=== PATIENT | male | born 1935 | race Caucasian/White ===

== ENCOUNTER 2017-01-03 17:25 | Inpatient (IN) | payer MEDICARE, MEDICAID ==
[~2017-01-03] VITALS: Ht 180.3 cm; Wt 64.0 kg
[2017-01-03] MEDS ORDERED: IOHEXOL 350 MG/ML 10 ML VIAL (for RAD DIAG) IVCONTRAST ONE (17:26)
[2017-01-03 17:27] VITALS: BP 125/54; PULSE 54; RESP 28; O2SAT 95
[2017-01-03] MEDS ORDERED: SODIUM CHLOR 0.9% 1000 ML INJ 1,000 ML IV SCH (18:44)
[2017-01-03] MEDS ORDERED: SODIUM CHLORIDE 0.9% FLUSH 10 ML FLUSH IV FLUSH PRN ×2 (18:45→22:30)
[2017-01-03] MEDS ORDERED: ONDANSETRON HCL 4 MG/2 ML VIAL IVP ONE (18:45)
[2017-01-03 18:48] VITALS: BP 137/78; PULSE 60; RESP 20; TEMP 96.3; O2SAT 97
--- NOTE | 2017-01-03 18:51 | PD ---
HPI Chief Complaint: GI Complaint Time Seen by Provider: 18:47 Travel History International Travel<30 days: No Contact w/Intl Traveler<30days: No Traveled to known affect area: No History of Present Illness HPI 81-year-old male presents to the emergency department complaining of abdominal pain, vomiting that started today. He states he ate some egg rolls this morning. He states that around 2 PM, he started with epigastric abdominal pain and vomiting. He states he vomited undigested food 3. Patient denies any diarrhea. She reports some mild constipation. No blood in his stool. He believes he ran a fever today due to chills. He states he does not have a thermometer S he lives on the streets. He reports history of "bad legs and bad eyes". He takes no prescribed medications. He denies any alcohol use. He does smoke cigars. No illegal drug use. He denies any chest pain or shortness of breath. COUNT INCLUDES THE [facility] Social History Alcohol Use: No Tobacco Use: Yes Substance Use: No Allergies-Medications (Allergen,Severity, Reaction): Coded Allergies: No Known Allergies (Unverified , 01/03/17) Reported Meds & Prescriptions Reported Meds & Active Scripts Active No Active Prescriptions or Reported Medications Review of Systems Except as stated in HPI: all other systems reviewed are Neg Physical Exam Narrative GENERAL: Well-nourished, well-developed elderly male patient, temp of 96.3 rectally. SKIN: Focused skin assessment warm/dry. HEAD: Normocephalic. Atraumatic EYES: No scleral icterus. No injection or drainage. NECK: Supple, trachea midline. No JVD or lymphadenopathy. CARDIOVASCULAR: Regular rate and rhythm without murmurs, gallops, or rubs. RESPIRATORY: Breath sounds equal bilaterally. No accessory muscle use. Lungs sounds diminished. GASTROINTESTINAL: Abdomen soft, and nondistended. Patient has tenderness to epigastric and right upper quadrant. MUSCULOSKELETAL: No cyanosis, or edema. BACK: Nontender without obvious deformity. No CVA tenderness. Data Data Last Documented VS Vital Signs Date Time Temp Pulse Resp B/P (MAP) Pulse Ox O2 Delivery O2 Flow Rate FiO2 01/03/17 19:21 97.8 70 20 131/62 (85) 98 Nasal Cannula 2.00 Orders Orders Morphine Inj (Morphine Inj) (01/03/17 19:00) Complete Blood Count With Diff (01/03/17 18:44) Comprehensive Metabolic Panel (01/03/17 18:44) Lipase (01/03/17 18:44) Lactic Acid (01/03/17 18:44) Prothrombin Time / Inr (Pt) (01/03/17 18:44) Act Partial Throm Time (Ptt) (01/03/17 18:44) Urinalysis - C+S If Indicated (01/03/17 18:44) Ct Abd/Pel W Iv Contrast(Rout) (01/03/17 18:44) Iv Access Insert/Monitor (01/03/17 18:44) Ecg Monitoring (01/03/17 18:44) Oximetry (01/03/17 18:44) Ondansetron Inj (Zofran Inj) (01/03/17 18:45) Sodium Chlor 0.9% 1000 Ml Inj (Ns 1000 M (01/03/17 18:44) Sodium Chloride 0.9% Flush (Ns Flush) (01/03/17 18:45) Electrocardiogram (01/03/17 18:44) Blood Culture (01/03/17 18:44) Iohexol 350 Inj (Omnipaque 350 Inj) (01/03/17 17:26) Piperacil-Tazo 4.5 Gm Premix (Zosyn 4.5 (01/03/17 21:30) Us Abdomen Gallbladder (01/03/17 ) Admit Order (Ed Use Only) (01/03/17 21:44) Labs Laboratory Tests Test 01/03/17 18:30 White Blood Count 9.1 TH/MM3 Red Blood Count 4.09 MIL/MM3 Hemoglobin 12.6 GM/DL Hematocrit 38.3 % Mean Corpuscular Volume 93.7 FL Mean Corpuscular Hemoglobin 30.8 PG Mean Corpuscular Hemoglobin Concent 32.9 % Red Cell Distribution Width 14.1 % Platelet Count 186 TH/MM3 Mean Platelet Volume 8.4 FL Neutrophils (%) (Auto) 89.3 % Lymphocytes (%) (Auto) 7.5 % Monocytes (%) (Auto) 2.9 % Eosinophils (%) (Auto) 0.1 % Basophils (%) (Auto) 0.2 % Neutrophils # (Auto) 8.1 TH/MM3 Lymphocytes # (Auto) 0.7 TH/MM3 Monocytes # (Auto) 0.3 TH/MM3 Eosinophils # (Auto) 0.0 TH/MM3 Basophils # (Auto) 0.0 TH/MM3 CBC Comment DIFF FINAL Differential Comment Prothrombin Time 10.7 SEC Prothromb Time International Ratio 1.0 RATIO Activated Partial Thromboplast Time 28.0 SEC Blood Urea Nitrogen 24 MG/DL Creatinine 1.04 MG/DL Random Glucose 166 MG/DL Total Protein 7.8 GM/DL Albumin 3.4 GM/DL Calcium Level 9.1 MG/DL Alkaline Phosphatase 91 U/L Aspartate Amino Transf (AST/SGOT) 226 U/L Alanine Aminotransferase (ALT/SGPT) 85 U/L Total Bilirubin 2.0 MG/DL Sodium Level 139 MEQ/L Potassium Level 5.5 MEQ/L Chloride Level 107 MEQ/L Carbon Dioxide Level 25.1 MEQ/L Anion Gap 7 MEQ/L Estimat Glomerular Filtration Rate 69 ML/MIN Lactic Acid Level 1.1 mmol/L Lipase 54658 U/L [facility] Medical Decision Making Medical Screen Exam Complete: Yes Emergency Medical Condition: Yes Medical Record Reviewed: Yes Interpretation(s) Last Impressions Abdomen/Pelvis CT 01/03/174 Signed Impressions: Service Date/Time: Sunday, January 03, 2017 20:45 - CONCLUSION: 1. Mild stranding of fat around the pancreas with some free fluid around the gallbladder and gallbladder wall thickening. Differential diagnosis includes mild pancreatitis and cholecystitis. Calcified gallstone in gallbladder. 2. No bowel obstruction. No free air. 3. Liver cirrhosis. Jerry Ball MD Differential Diagnosis Pancreatitis versus cholecystitis versus diverticulitis versus UTI versus gastroenteritis Narrative Course 81-year-old male presents to the emergency department for evaluation of abdominal pain, vomiting that started today. Patient has temperature of 96.3 rectally. EKG, CBC, CMP, lipase, PTT, PT/INR, blood cultures 2, lactic acid, UA are ordered and pending. CT abdomen/pelvis with IV contrast is ordered and pending. CBC shows no acute abnormality. CMP shows hyperkalemia 5.5, but hemolysis is noted, glucose 166, bilirubin 2.0, AST 226, ALT 85. Lipase is 26,225. Lactic acid is 1.1. Coags show no acute abnormality. CT abdomen/pelvis shows 1. Mild stranding of fat around the pancreas with some free fluid around the gallbladder and gallbladder wall thickening. Differential diagnosis includes mild pancreatitis and cholecystitis. Calcified gallstone in gallbladder. 2. No bowel obstruction. No free air. 3. Liver cirrhosis. Right upper quadrant ultrasound is ordered. Patient is given Zosyn 4.[address] Tyson accepted admission. Diagnosis Primary Impression: Acute pancreatitis Qualified Codes: K85.90 - Acute pancreatitis without necrosis or infection, unspecified Admitting Information Admitting Physician Requests: Admit Scripts No Active Prescriptions or Reported Meds Lisa Amato Jan 03, 2017 18:51
[2017-01-03] MEDS ORDERED: MORPHINE SULFATE 4 MG/ML INJ IV PUSH ONE (19:00)
[2017-01-03 19:21] VITALS: BP 131/62; PULSE 70; RESP 20; TEMP 97.8; O2SAT 98
[2017-01-03 19:47] LABS: AUTOMATED NEUTROPHIL # 8.1 TH/MM3 (1.8-7.7); BASOPHIL % 0.2 % (0.0-2.0); EOSINOPHIL % 0.1 % (0.0-4.0); HEMATOCRIT 38.3 % (39.0-51.0); HEMO FLAGS DIFF FINAL; LYMPH % 7.5 % (9.0-44.0); LYMPHOCYTE # 0.7 TH/MM3 (1.0-4.8); MEAN CELL VOLUME 93.7 FL (80.0-100.0); MEAN CORPUSCULAR HEMOGLOBIN 30.8 PG (27.0-34.0); MEAN CORPUSCULAR HGB CONC 32.9 % (32.0-36.0); MONO % 2.9 % (0.0-8.0); NEUT % 89.3 % (16.0-70.0); PLATELET COUNT 186 TH/MM3 (150-450); RED BLOOD COUNT 4.09 MIL/MM3 (4.50-5.90); RED CELL DISTRIBUTION WIDTH 14.1 % (11.6-17.2); WHITE BLOOD COUNT 9.1 TH/MM3 (4.0-11.0)
[2017-01-03 19:52] LABS: PROTHROMBIN TIME - PATIENT 10.7 SEC (9.8-11.6)
[2017-01-03 20:02] LABS: ALT (GPT) 85 U/L (12-78)
[2017-01-03 20:03] LABS: ANION GAP 7 MEQ/L (5-15); AST (GOT) 226 U/L (15-37); BICARBONATE 25.1 MEQ/L (21.0-32.0); BLOOD UREA NITROGEN 24 MG/DL (7-18); CHLORIDE 107 MEQ/L (98-107); GLOMERULAR FILTRATION RATE 69 ML/MIN (>89); SODIUM (NA) 139 MEQ/L (136-145)
[2017-01-03 20:04] LABS: ALKALINE PHOSPHATASE 91 U/L (45-117)
[2017-01-03 20:06] LABS: POTASSIUM 5.5 MEQ/L (3.5-5.1)
--- NOTE | 2017-01-03 21:12 | RADRPT ---
EXAM DATE/TIME: 01/03/2017 20:45 [facility] COMPARISON: No previous studies available for comparison. INDICATIONS : Patient complains of abdominal pain, nausea and vomiting. IV CONTRAST: 80 cc Omnipaque 350 (iohexol) IV ORAL CONTRAST: No oral contrast ingested. RADIATION DOSE: 6.64 CTDIvol (mGy) MEDICAL HISTORY : None SURGICAL HISTORY : None. ENCOUNTER: Initial ACUITY: 1 day PAIN SCALE: 5/10 LOCATION: Bilateral upper quadrant TECHNIQUE: Volumetric scanning of the abdomen and pelvis was performed. Using automated exposure control and ad justment of the mA and/or kV according to patient size, radiation dose was kept as low as reasonably achievable to obtain optimal diagnostic quality images. DICOM format image data is available electro nically for review and comparison. FINDINGS: Lung bases demonstrate mild focal consolidation right lower lobe with some mild distal airway disease . Liver has a lobulated appearance characteristic of liver cirrhosis. Gallstone is present. There is so me gallbladder with thickening and pericholecystic fluid. This does raise the possibility of cholecys titis. Spleen, adrenals unremarkable. There is some mild stranding of fat around the pancreas. Small bilater al renal cysts. No pelvic masses or adenopathy. No significant free fluid in the pelvis. No acute bony abnormalities. CONCLUSION: 1. Mild stranding of fat around the pancreas with some free fluid around the gallbladder and gallblad chris wall thickening. Differential diagnosis includes mild pancreatitis and cholecystitis. Calcified g allstone in gallbladder. 2. No bowel obstruction. No free air. 3. Liver cirrhosis. Jerry Ball MD on January 03, 2017 at 21:02 Board Certified Radiologist. This report was verified electronically.
[2017-01-03] MEDS ORDERED: PIPERACIL-TAZO 4.5 GM PREMIX 100 ML IV ONE (21:30)
[2017-01-03] MEDS ORDERED: NALOXONE HCL 0.4 MG/ML AMP IV PRN (22:30)
[2017-01-03] MEDS ORDERED: MORPHINE SULFATE 4 MG/ML INJ IV PUSH PRN (22:30)
--- NOTE | 2017-01-03 22:46 | RADRPT ---
EXAM DATE/TIME: 01/03/2017 21:50 [facility] COMPARISON: No previous studies available for comparison. INDICATIONS : Right upper quadrant pain. MEDICAL HISTORY : Vomiting. Nausea. Right upper quadrant pain. SURGICAL HISTORY : None. ENCOUNTER: Initial ACUITY: 1 day PAIN SCORE: 6/10 LOCATION: Right upper quadrant MEASUREMENTS: Liver has a slightly lobulated appearance characteristic of liver cirrhosis. There is gallbladder wal l thickening with multiple gallstones and positive sonographic Stokes's sign. Some shadowing the gall bladder wall could represent some adenomyomatosis. Pancreas not well-visualized. Trace fluid in Roberts's pouch. Right kidney unremarkable. No biliary ductal dilatation. The portal venous flow is in normal direction. FINDINGS: CONCLUSION: 1. Gallbladder wall thickening with multiple gallstones and positive sonographic Stokes sign. Primary differential diagnosis is cholecystitis. There may also be some adenomyomatosis in the gallbladder w all. Jerry aBll MD on January 03, 2017 at 22:41 Board Certified Radiologist. This report was verified electronically.
[2017-01-03 23:08] VITALS: BP 124/61; PULSE 68; RESP 17; TEMP 98; O2SAT 99
[2017-01-03] MEDS: SODIUM CHLOR 0.9% 1000 ML INJ 1,000 ML IV SCH (23:10)
[2017-01-03 23:44] VITALS: BP 120/60; PULSE 70; RESP 17; TEMP 97; O2SAT 95
[2017-01-04 00:16] LABS: BLOOD, URINE NEG (NEG); GLUCOSE,URINE NEG (NEG); KETONE, URINE 10 mg/dL (NEG); MUCUS URINE FEW /lpf (OCC); NITRITE,URINE NEG (NEG); PH, URINE 5.5 (5.0-8.5); SQUAMOUS EPITHELIAL CELL URINE <1 /hpf (0-5); URINE COLOR YELLOW (YELLW/STRAW)
[2017-01-04 00:17] LABS: COMMENT (UR) CULT NOT INDICATED; CULTURE IF INDICATED CULT NOT INDICATED
--- NOTE | 2017-01-04 01:20 | HHI.HP ---
[facility] Primary Care Physician Admission Diagnosis acute pancreatitis Diagnoses: Travel History International Travel<30 Days: No Contact w/Intl Traveler <30 Da: No Traveled to Known Affected Are: No History of Present Illness History from patient, ER physician notes, and review of medical records. Patient reported that he thought he was having bed and rolls when he started having severe abdominal pains, pointed to midepigastrium, last night. He reports that he was quite nauseous and vomited a few times about 3 times. He was able to go to his friend's place though and at his friend's place, he was again feeling sick and felt warm and feverish. He also fell asleep because of being too weak. His friend there for than encouraged him to come to hospital and called 911. He denies any black color vomits or red color vomit. Denies any blood in his urine. Apart from the above, patient denies any other constitutional symptoms. Denies any chest pain/palpitations/shortness of breath/focal weakness. Denies any hematemesis/hematochezia/melena/hematuria. 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- but mostly on left side Past Surgical History ankle surgery knee surgery no trouble with anesthesia Allergies: Coded Allergies: No Known Allergies (Unverified , 01/03/17) Family History grandparents raised him grandma had- dm, gallbladder trouble Social History still smoking, "more than you could ever imagine" mostly cigars no etoh used to use drugs, iv drugs, but quit in 1983 Physical Exam Vital Signs Vital Signs Date Time Temp Pulse Resp B/P (MAP) Pulse Ox O2 Delivery O2 Flow Rate FiO2 01/03/17 23:08 98.0 68 17 124/61 (82) 99 Nasal Cannula 2.00 01/03/17 19:21 97.8 70 20 131/62 (85) 98 Nasal Cannula 2.00 01/03/17 18:48 96.3 60 20 137/78 (97) 97 Room Air 01/03/17 18:48 97 Room Air 01/03/17 17:27 54 28 125/54 (77) 95 Room Air Physical Exam GENERAL: This is a well-nourished, well-developed patient, in no apparent distress. SKIN: No rashes, ecchymoses or lesions. Cool and dry. HEAD: Atraumatic. Normocephalic. No temporal or scalp tenderness. EYES: No scleral icterus. No injection or drainage. ENT: Nose without bleeding, purulent drainage or septal hematoma. Airway patent. NECK: Trachea midline. No JVD CARDIOVASCULAR: Regular rate and rhythm without murmurs, gallops, or rubs. RESPIRATORY: Clear to auscultation. Breath sounds equal bilaterally. No wheezes , rales, or rhonchi. GASTROINTESTINAL: Abdomen soft, tenderness at RUQ and midepigastric, nondistended. No guarding. MUSCULOSKELETAL: Extremities without clubbing, cyanosis, or edema. No joint tenderness, effusion, or edema noted. No calf tenderness. NEUROLOGICAL: Awake and alert. Motor and sensory grossly within normal limits. Normal speech. Laboratory Laboratory Tests Test 01/03/17 18:30 01/04/17 00:01 White Blood Count 9.1 Red Blood Count 4.09 Hemoglobin 12.6 Hematocrit 38.3 Mean Corpuscular Volume 93.7 Mean Corpuscular Hemoglobin 30.8 Mean Corpuscular Hemoglobin Concent 32.9 Red Cell Distribution Width 14.1 Platelet Count 186 Mean Platelet Volume 8.4 Neutrophils (%) (Auto) 89.3 Lymphocytes (%) (Auto) 7.5 Monocytes (%) (Auto) 2.9 Eosinophils (%) (Auto) 0.1 Basophils (%) (Auto) 0.2 Neutrophils # (Auto) 8.1 Lymphocytes # (Auto) 0.7 Monocytes # (Auto) 0.3 Eosinophils # (Auto) 0.0 Basophils # (Auto) 0.0 CBC Comment DIFF FINAL Differential Comment Prothrombin Time 10.7 Prothromb Time International Ratio 1.0 Activated Partial Thromboplast Time 28.0 Blood Urea Nitrogen 24 Creatinine 1.04 Random Glucose 166 Total Protein 7.8 Albumin 3.4 Calcium Level 9.1 Alkaline Phosphatase 91 Aspartate Amino Transf (AST/SGOT) 226 Alanine Aminotransferase (ALT/SGPT) 85 Total Bilirubin 2.0 Sodium Level 139 Potassium Level 5.5 Chloride Level 107 Carbon Dioxide Level 25.1 Anion Gap 7 Estimat Glomerular Filtration Rate 69 Lactic Acid Level 1.1 Lipase 02027 Urine Color YELLOW Urine Turbidity CLEAR Urine pH 5.5 Urine Specific [place] GREATER THAN 1.050 Urine Protein TRACE Urine Glucose (UA) NEG Urine Ketones 10 Urine Occult Blood NEG Urine Nitrite NEG Urine Bilirubin NEG Urine Urobilinogen LESS THAN 2.0 Urine Leukocyte Esterase NEG Urine RBC 2 Urine WBC 1 Urine Squamous Epithelial Cells <1 Urine Mucus FEW Microscopic Urinalysis Comment CULT NOT INDICATED Date/Time Source Procedure Growth Status 01/03/17 18:55 Blood Peripheral Aerobic Blood Culture Pending Received 01/03/17 18:55 Blood Peripheral Anaerobic Blood Culture Pending Received Result Diagram: 01/03/17 1830 01/03/17 1830 Imaging Last 48 hours Impressions Abdomen/Pelvis CT 01/03/17 1844 Signed Impressions: Service Date/Time: Tuesday, January 03, 2017 20:45 - CONCLUSION: 1. Mild stranding of fat around the pancreas with some free fluid around the gallbladder and gallbladder wall thickening. Differential diagnosis includes mild pancreatitis and cholecystitis. Calcified gallstone in gallbladder. 2. No bowel obstruction. No free air. 3. Liver cirrhosis. Jerry Ball MD Gall Bladder Ultrasound 01/03/17 0000 Signed Impressions: Service Date/Time: Tuesday, January 03, 2017 21:50 - CONCLUSION: 1. Gallbladder wall thickening with multiple gallstones and positive sonographic Stokes sign. Primary differential diagnosis is cholecystitis. There may also be some adenomyomatosis in the gallbladder wall. Jerry Ball MD Caprini VTE Risk Assessment Caprini VTE Risk Assessment: Mod/High Risk (score >= 2) Caprini Risk Assessment Model Point Value = 1 Point Value = 2 Point Value = 3 Point Value = 5 Age 41-60 Minor surgery BMI > 25 kg/m2 Swollen legs Varicose veins or History of unexplained or recurrent spontaneous Oral contraceptives or hormone replacement Sepsis (< 1 month) Serious lung disease, including pneumonia (< 1 month) Abnormal pulmonary function Acute myocardial infarction Congestive heart failure (< 1 month) History of inflammatory bowel disease Medical patient at bed rest Age 61-74 Arthroscopic surgery Major open surgery (> 45 min) Laparoscopic surgery (> 45 min) Malignancy Confined to bed (> 72 hours) Immobilizing plaster cast Central venous access Age >= 75 History of VTE Family history of VTE Factor V Leiden Prothrombin [id number] Lupus anticoagulant Anticardiolipin antibodies Elevated serum homocysteine Heparin-induced thrombocytopenia Other congenital or acquired thrombophilia Stroke (< 1 month) Elective arthroplasty Hip, pelvis, or leg fracture Acute spinal cord injury (< 1 month) Prophylaxis Regimen Total Risk Factor Score Risk Level Prophylaxis Regimen 0-1 Low Early ambulation 2 Moderate Order ONE of the following: *Sequential Compression Device (SCD) *Heparin 5000 units SQ BID 3-4 Higher Order ONE of the following medications: *Heparin 5000 units SQ TID *Enoxaparin/Lovenox 40 mg SQ daily (WT < 150 kg, CrCl > 30 mL/min) *Enoxaparin/Lovenox 30 mg SQ daily (WT < 150 kg, CrCl > 10-29 mL/min) *Enoxaparin/Lovenox 30 mg SQ BID (WT < 150 kg, CrCl > 30 mL/min) AND/OR *Sequential Compression Device (SCD) 5 or more Highest Order ONE of the following medications: *Heparin 5000 units SQ TID (Preferred with Epidurals) *Enoxaparin/Lovenox 40 mg SQ daily (WT < 150 kg, CrCl > 30 mL/min) *Enoxaparin/Lovenox 30 mg SQ daily (WT < 150 kg, CrCl > 10-29 mL/min) *Enoxaparin/Lovenox 30 mg SQ BID (WT < 150 kg, CrCl > 30 mL/min) AND *Sequential Compression Device (SCD) Assessment and Plan Assessment and Plan Impression: Choledocholithiasis Gallstone pancreatitis Acute cholecystitis Liver cirrhosis- found on imaging studies Plan: Nothing by mouth. GI consult. Possible ERCP in a.m. General surgery consult for possible cholecystectomy. Pain control. Start patient on Zosyn 4.5 grams IV every 6 hours. DVT prophylaxiswith SCD. GI prophylaxis on pantoprazole. Physician Certification 2 Midnight Certification Type: Admission for Inpatient Services Order for Inpatient Services The services are ordered in accordance with Medicare regulations or non- Medicare payer requirements, as applicable. In the case of services not specified as inpatient-only, they are appropriately provided as inpatient services in accordance with the 2-midnight benchmark. Estimated LOS (days): 2 days is the estimated time the patient will need to remain in the hospital, assuming treatment plan goals are met and no additional complications. Post-Hospital Plan: Home Enrique Tyson MD Jan 04, 2017 01:20
[2017-01-04] MEDS: PIPERACIL-TAZO 4.5 GM PREMIX 100 ML IV SCH ×4 (03:00→21:00)
[2017-01-04 04:10] VITALS: BP 127/70; PULSE 68; RESP 17; TEMP 97.5; O2SAT 96
[2017-01-04 07:09] LABS: AUTOMATED NEUTROPHIL # 5.6 TH/MM3 (1.8-7.7); BASOPHIL % 0.2 % (0.0-2.0); EOSINOPHIL % 0.2 % (0.0-4.0); HEMATOCRIT 34.8 % (39.0-51.0); HEMO FLAGS DIFF FINAL; LYMPH % 21.4 % (9.0-44.0); LYMPHOCYTE # 1.6 TH/MM3 (1.0-4.8); MEAN CORPUSCULAR HEMOGLOBIN 31.3 PG (27.0-34.0); MEAN CORPUSCULAR HGB CONC 33.6 % (32.0-36.0); MONO % 5.1 % (0.0-8.0); NEUT % 73.1 % (16.0-70.0); PLATELET COUNT 150 TH/MM3 (150-450); RED BLOOD COUNT 3.75 MIL/MM3 (4.50-5.90); WHITE BLOOD COUNT 7.7 TH/MM3 (4.0-11.0)
[2017-01-04 07:15] LABS: ALKALINE PHOSPHATASE 77 U/L (45-117); ALT (GPT) 64 U/L (12-78); ANION GAP 5 MEQ/L (5-15); AST (GOT) 96 U/L (15-37); BICARBONATE 27.9 MEQ/L (21.0-32.0); BLOOD UREA NITROGEN 20 MG/DL (7-18); CHLORIDE 109 MEQ/L (98-107); GLOMERULAR FILTRATION RATE 79 ML/MIN (>89); POTASSIUM 3.7 MEQ/L (3.5-5.1); SODIUM (NA) 142 MEQ/L (136-145)
[2017-01-04 07:49] VITALS: PULSE 69
[2017-01-04 08:00] VITALS: BP 111/79; PULSE 71; RESP 18; TEMP 99.1; O2SAT 93
[2017-01-04] MEDS: SODIUM CHLOR 0.9% 1000 ML INJ 1,000 ML IV SCH ×4 (08:28→18:28)
--- NOTE | 2017-01-04 08:28 | EKG ---
Date Performed: 01/03/2017 Time Performed: 19:44:00 PTAGE: 81 years EKG: Sinus rhythm WITH FIRST DEGREE AV BLOCK SEPTAL MYOCARDIAL INFARCTION ABNORMAL ECG NO PREVIOUS TRACING DOCTOR: Yonas Martin Interpretating Date/Time 01/04/2017 08:26:05
--- NOTE | 2017-01-04 10:06 | PD.CONS ---
HPI History of Present Illness This is a 81 year old male who came to the emergency room for evaluation of abdominal pain with associated nausea and vomiting. Yesterday morning he had 2 egg rolls and reports that a few hours later he had sudden onset of moderate to severe epigastric pain which she describes as an intermittent dull ache that radiated to his back. He also reports that he had 2 episodes of nausea and vomiting consisting of bilious material. He had chills with a mild subjective fever. He also had mild bloating but denies any diarrhea or constipation. His symptoms were aggravated by any oral intake. He denies any prior episodes. He came to the ER and was found to have elevated lipase and lft's consistent with gallstone pancreatitis. He denies any prior history of pancreatitis or known gallbladder disease. He does not drink any alcohol. He denies any new medications. He reports that since his arrival to the ER he is feeling much better and his pain has resolved. He is no longer having nausea and vomiting and reports that he is hungry and would like some soup. (Bren Hansen) [facility] Past Medical History Denies any known medical problems, but does not regularly see a healthcare provider Chronic tobacco use Past Surgical History Ankle surgery Knee surgery (Bren Hansen) Coded Allergies: No Known Allergies (Unverified , 01/03/17) Medications Allergies Coded Allergies Type Severity Reaction Last Updated Verified No Known Allergies 01/03/17 No Active Scripts Medications Dose Route/Sig Max Daily Dose Days Date Category No Active Prescriptions or Reported Medications Rx Family History Does not know his family histories. States that his grandparents raised him Social History Tobacco use, unable to quantify, kept stating "more than you could ever imagine " No ETOH use No illicit drug use. (Bren Hansen) Review of Systems Constitutional: COMPLAINS OF: Fever, Chills, DENIES: Weight loss Respiratory: COMPLAINS OF: Cough, Wheezing Cardiovascular: DENIES: Chest pain Gastrointestinal: COMPLAINS OF: Abdominal pain, Nausea, Vomiting, Swelling of Abdomen (mild bloating), DENIES: Black stools, Bloody stools, Constipation, Diarrhea, Heartburn Musculoskeletal: COMPLAINS OF: Joint pain, Muscle aches Integumentary: DENIES: Abnormal pigmentation, Jaundice Hematologic/lymphatic: DENIES: Bruising Neurologic: DENIES: Headache Psychiatric: DENIES: Confusion (Bren Hansen) GI Exam Vitals I&O Vital Signs Date Time Temp Pulse Resp B/P (MAP) Pulse Ox O2 Delivery O2 Flow Rate FiO2 01/04/17 04:10 97.5 68 17 127/70 (89) 96 01/03/17 23:44 97.0 70 17 120/60 (80) 95 01/03/17 23:08 98.0 68 17 124/61 (82) 99 Nasal Cannula 2.00 01/03/17 19:21 97.8 70 20 131/62 (85) 98 Nasal Cannula 2.00 01/03/17 18:48 96.3 60 20 137/78 (97) 97 Room Air 01/03/17 18:48 97 Room Air 01/03/17 17:27 54 28 125/54 (77) 95 Room Air I/O 01/03/17 01/03/17 01/03/17 01/04/17 01/04/17 01/04/17 06:59 14:59 22:59 06:59 14:59 22:59 Intake Total 1000 ml 645 ml Balance 1000 ml 645 ml Intake Oral 120 ml IV Total 1000 ml 525 ml # Voids 1 # Bowel Movements 0 Imaging Last Impressions Abdomen/Pelvis CT 01/03/17 1844 Signed Impressions: Service Date/Time: Tuesday, January 03, 2017 20:45 - CONCLUSION: 1. Mild stranding of fat around the pancreas with some free fluid around the gallbladder and gallbladder wall thickening. Differential diagnosis includes mild pancreatitis and cholecystitis. Calcified gallstone in gallbladder. 2. No bowel obstruction. No free air. 3. Liver cirrhosis. Jerry Ball MD Gall Bladder Ultrasound 01/03/17 0000 Signed Impressions: Service Date/Time: Tuesday, January 03, 2017 21:50 - CONCLUSION: 1. Gallbladder wall thickening with multiple gallstones and positive sonographic Stokes sign. Primary differential diagnosis is cholecystitis. There may also be some adenomyomatosis in the gallbladder wall. Jerry Ball MD Laboratory Test 01/03/17 18:30 01/04/17 00:01 01/04/17 05:57 White Blood Count 9.1 TH/MM3 7.7 TH/MM3 Red Blood Count 4.09 MIL/MM3 3.75 MIL/MM3 Hemoglobin 12.6 GM/DL 11.7 GM/DL Hematocrit 38.3 % 34.8 % Mean Corpuscular Volume 93.7 FL 93.0 FL Mean Corpuscular Hemoglobin 30.8 PG 31.3 PG Mean Corpuscular Hemoglobin Concent 32.9 % 33.6 % Red Cell Distribution Width 14.1 % 14.0 % Platelet Count 186 TH/MM3 150 TH/MM3 Mean Platelet Volume 8.4 FL 8.0 FL Neutrophils (%) (Auto) 89.3 % 73.1 % Lymphocytes (%) (Auto) 7.5 % 21.4 % Monocytes (%) (Auto) 2.9 % 5.1 % Eosinophils (%) (Auto) 0.1 % 0.2 % Basophils (%) (Auto) 0.2 % 0.2 % Neutrophils # (Auto) 8.1 TH/MM3 5.6 TH/MM3 Lymphocytes # (Auto) 0.7 TH/MM3 1.6 TH/MM3 Monocytes # (Auto) 0.3 TH/MM3 0.4 TH/MM3 Eosinophils # (Auto) 0.0 TH/MM3 0.0 TH/MM3 Basophils # (Auto) 0.0 TH/MM3 0.0 TH/MM3 CBC Comment DIFF FINAL DIFF FINAL Differential Comment Prothrombin Time 10.7 SEC Prothromb Time International Ratio 1.0 RATIO Activated Partial Thromboplast Time 28.0 SEC Blood Urea Nitrogen 24 MG/DL 20 MG/DL Creatinine 1.04 MG/DL 0.92 MG/DL Random Glucose 166 MG/DL 72 MG/DL Total Protein 7.8 GM/DL 6.3 GM/DL Albumin 3.4 GM/DL 2.7 GM/DL Calcium Level 9.1 MG/DL 8.2 MG/DL Alkaline Phosphatase 91 U/L 77 U/L Aspartate Amino Transf (AST/SGOT) 226 U/L 96 U/L Alanine Aminotransferase (ALT/SGPT) 85 U/L 64 U/L Total Bilirubin 2.0 MG/DL 1.0 MG/DL Sodium Level 139 MEQ/L 142 MEQ/L Potassium Level 5.5 MEQ/L 3.7 MEQ/L Chloride Level 107 MEQ/L 109 MEQ/L Carbon Dioxide Level 25.1 MEQ/L 27.9 MEQ/L Anion Gap 7 MEQ/L 5 MEQ/L Estimat Glomerular Filtration Rate 69 ML/MIN 79 ML/MIN Lactic Acid Level 1.1 mmol/L Lipase 16567 U/L 5577 U/L Urine Color YELLOW Urine Turbidity CLEAR Urine pH 5.5 Urine Specific [place] GREATER THAN 1.050 Urine Protein TRACE mg/dL Urine Glucose (UA) NEG mg/dL Urine Ketones 10 mg/dL Urine Occult Blood NEG Urine Nitrite NEG Urine Bilirubin NEG Urine Urobilinogen LESS THAN 2.0 MG/DL Urine Leukocyte Esterase NEG Urine RBC 2 /hpf Urine WBC 1 /hpf Urine Squamous Epithelial Cells <1 /hpf Urine Mucus FEW /lpf Microscopic Urinalysis Comment CULT NOT INDICATED Date/Time Source Procedure Growth Status 01/03/17 18:55 Blood Peripheral Aerobic Blood Culture Pending Received 01/03/17 18:55 Blood Peripheral Anaerobic Blood Culture Pending Received Physical Examination HEENT: Normocephalic; atraumatic; no jaundice. CHEST: Resp. even/unlabored, expiratory wheezing, diminished breath sounds CARDIAC: RRR ABDOMEN: Soft, nondistended, very mild epigastric tenderness; no hepatosplenomegaly; bowel sounds are present in all four quadrants. EXTREMITIES: No clubbing, cyanosis, or edema. SKIN: Normal; no rash; no jaundice. [employer]: No focal deficits; alert and oriented times three. (Bren Hansen [facility]) Assessment and Plan Plan ASSESSMENT: - Gallstone pancreatitis. CT scan abdomen and pelvis with iv contrast (01/03/17)- ----> mild stranding of fat around the pancreas with some free fluid around the gallbladder and gallbladder wall thickening. Differential diagnosis included mild pancreatitis and cholecystitis. Calcified gallstone in gallbladder. No bowel obstruction. No free air. Liver cirrhosis. US (01/03/17)----> gallbladder wall thickening with multiple gallstones and positive sonographic Stokes sign. Primary differential diagnosis is cholecystitis. There also may be some adenomyomatosis and the gallbladder wall. Liver has a slightly lobulated appearance characteristic of liver cirrhosis. Lipase 26, 225---> 5577. LFTs were initially elevated in an obstructive pattern, but are trending down. Clinically the patient is much improved. Suspect that he passed a gallstone, but will obtain MRCP to r/o choledocholithiasis. Zosyn. IVF. - Cholecystitis, cholelithiasis. We will consult general surgery for evaluation for laparoscopic cholecystectomy once pancreatitis resolves. Zosyn - Liver cirrhosis on imaging (US/CT). No prior diagnosis of this. MELD 6. Denies ETOH use. 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 ? underlying chronic hepatitis. Will check liver workup. - Wheezing with significant tobacco history, suspect underlying COPD, per attending. - Hyperkalemia, improved. PLAN: - Clear liquid - MRCP - Add continuous IVF- NS 125cc/hr - Continue Zosyn - General surgery even for laparoscopic cholecystectomy once pancreatitis resolves - Hepatitis panel - MEKA, AMA, ASMA - AFP level - Ferritin, Iron saturation - Ceruloplasmin, ALpha 1 Antitrypsin - LFT, Lipase in am - Supportive care - Further recommendations to follow based on results of above - Pt seen and examined by Dr. Alberts and myself and this note is written on his behalf (Bren Hansen) Physician Comments Seen and examined, plan as above, surgical consult for cholecystectomy. (Brian Alberts MD) Bren Hansen Jan 04, 2017 10:06 Brian Alberts MD Jan 05, 2017 06:08
--- NOTE | 2017-01-04 10:36 | PD.CONS ---
cc: Michel Webb MD [facility] Service General Surgery Consult Requested By Dr. Tyson Reason for Consult Gallstone pancreatitis Primary Care Physician No Primary Care Physician History of Present Illness This is a 81-year-old male with a past medical history of arthritis. He started developing abdominal pain one day ago around 2 PM. He has multiple episodes of vomiting. He reports epigastric pain after eating egg rolls. A CT abdomen and pelvis was obtained which showed pancreatitis and free fluid around the gallbladder with gallbladder wall thickening. A lipase was obtained which was 26,000. A repeat lipase was obtained which was 5500. The patient is resolution of his abdominal pain. He likely passed a gallstone. An MRCP was obtained which only show cholelithiasis. The patient has been able to tolerate clear liquids. A General Surgery consultation has been requested for evaluation for laparoscopic cholecystectomy. Review of Systems Constitutional: COMPLAINS OF: Change in appetite, DENIES: Fatigue, Weight gain , Weight loss, Chills Endocrine: DENIES: Polydipsia, Polyuria, Polyphagia Eyes: DENIES: Diplopia Ears, nose, mouth, throat: DENIES: Hearing loss Respiratory: DENIES: Cough Cardiovascular: DENIES: Chest pain Gastrointestinal: COMPLAINS OF: Abdominal pain, Nausea, Vomiting Genitourinary: DENIES: Dysuria Musculoskeletal: DENIES: Joint pain Integumentary: DENIES: Abnormal pigmentation Hematologic/lymphatic: DENIES: Bruising Immunologic/allergic: DENIES: Eczema Neurologic: DENIES: Headache, Localized weakness, Paresthesias Psychiatric: DENIES: Confusion, Mood changes, Depression Past Family Social History Past Medical History Arthritis Past Surgical History Right ankle surgery Left knee surgery Reported Medications None Allergies: Coded Allergies: No Known Allergies (Unverified , 01/03/17) Active Ordered Medications Current Medications Medications (Trade) Dose Ordered Sig/Paulina Route Start Time Stop Time Status Last Admin (NS Flush) 2 ml UNSCH PRN IV FLUSH 01/03/17 18:45 Future Hold Sodium Chloride 1,000 ml @ 100 mls/hr Q10H IV 01/03/17 22:28 01/03/17 23:10 (NS Flush) 2 ml UNSCH PRN IV FLUSH 01/03/17 22:30 (NS Flush) 2 ml BID IV FLUSH 01/04/17 09:00 (Narcan Inj) 0.4 mg UNSCH PRN IV 01/03/17 22:30 Piperacillin Sod/ Tazobactam Sod 100 ml @ 200 mls/hr Q6H IV 01/04/17 03:00 01/04/17 03:00 (Morphine Inj) 2 mg Q3H PRN IV PUSH 01/03/17 22:30 Sodium Chloride 1,000 ml @ 125 mls/hr Q8H IV 01/04/17 10:15 Family History Noncontributory Social History Positive tobacco use-2 packs per day Denies EtOH use Denies current illicit drug use although he does admit to prior IVDA in the Physical Exam Vital Signs Vital Signs Date Time Temp Pulse Resp B/P (MAP) Pulse Ox O2 Delivery O2 Flow Rate FiO2 01/04/17 04:10 97.5 68 17 127/70 (89) 96 01/03/17 23:44 97.0 70 17 120/60 (80) 95 01/03/17 23:08 98.0 68 17 124/61 (82) 99 Nasal Cannula 2.00 01/03/17 19:21 97.8 70 20 131/62 (85) 98 Nasal Cannula 2.00 01/03/17 18:48 96.3 60 20 137/78 (97) 97 Room Air 01/03/17 18:48 97 Room Air 01/03/17 17:27 54 28 125/54 (77) 95 Room Air Physical Exam GENERAL: Pleasant 81-year-old male resting in bed in no acute distress. SKIN: Warm and dry. HEAD: Atraumatic. Normocephalic. EYES: Pupils equal and round. No scleral icterus. No injection or drainage. ENT: No nasal bleeding or discharge. Mucous membranes pink and moist. NECK: Trachea midline. CARDIOVASCULAR: Regular rate and rhythm. RESPIRATORY: No accessory muscle use. Clear to auscultation. Breath sounds equal bilaterally. GASTROINTESTINAL: Abdomen soft, nondistended. Minimal right upper quadrant tenderness with palpation. MUSCULOSKELETAL: Extremities without clubbing, cyanosis, or edema. No obvious deformities. NEUROLOGICAL: Awake and alert. No obvious cranial nerve deficits. Motor grossly within normal limits. Five out of 5 muscle strength in the arms and legs. Normal speech. PSYCHIATRIC: Appropriate mood and affect; insight and judgment normal. Laboratory Laboratory Tests Test 01/03/17 18:30 01/04/17 00:01 01/04/17 05:57 White Blood Count 9.1 7.7 Red Blood Count 4.09 3.75 Hemoglobin 12.6 11.7 Hematocrit 38.3 34.8 Mean Corpuscular Volume 93.7 93.0 Mean Corpuscular Hemoglobin 30.8 31.3 Mean Corpuscular Hemoglobin Concent 32.9 33.6 Red Cell Distribution Width 14.1 14.0 Platelet Count 186 150 Mean Platelet Volume 8.4 8.0 Neutrophils (%) (Auto) 89.3 73.1 Lymphocytes (%) (Auto) 7.5 21.4 Monocytes (%) (Auto) 2.9 5.1 Eosinophils (%) (Auto) 0.1 0.2 Basophils (%) (Auto) 0.2 0.2 Neutrophils # (Auto) 8.1 5.6 Lymphocytes # (Auto) 0.7 1.6 Monocytes # (Auto) 0.3 0.4 Eosinophils # (Auto) 0.0 0.0 Basophils # (Auto) 0.0 0.0 CBC Comment DIFF FINAL DIFF FINAL Differential Comment Prothrombin Time 10.7 Prothromb Time International Ratio 1.0 Activated Partial Thromboplast Time 28.0 Blood Urea Nitrogen 24 20 Creatinine 1.04 0.92 Random Glucose 166 72 Total Protein 7.8 6.3 Albumin 3.4 2.7 Calcium Level 9.1 8.2 Alkaline Phosphatase 91 77 Aspartate Amino Transf (AST/SGOT) 226 96 Alanine Aminotransferase (ALT/SGPT) 85 64 Total Bilirubin 2.0 1.0 Sodium Level 139 142 Potassium Level 5.5 3.7 Chloride Level 107 109 Carbon Dioxide Level 25.1 27.9 Anion Gap 7 5 Estimat Glomerular Filtration Rate 69 79 Lactic Acid Level 1.1 Lipase 64713 5577 Urine Color YELLOW Urine Turbidity CLEAR Urine pH 5.5 Urine Specific [place] GREATER THAN 1.050 Urine Protein TRACE Urine Glucose (UA) NEG Urine Ketones 10 Urine Occult Blood NEG Urine Nitrite NEG Urine Bilirubin NEG Urine Urobilinogen LESS THAN 2.0 Urine Leukocyte Esterase NEG Urine RBC 2 Urine WBC 1 Urine Squamous Epithelial Cells <1 Urine Mucus FEW Microscopic Urinalysis Comment CULT NOT INDICATED Date/Time Source Procedure Growth Status 8/23/17 18:55 Blood Peripheral Aerobic Blood Culture Pending Received 01/03/17 18:55 Blood Peripheral Anaerobic Blood Culture Pending Received Result Diagram: 01/04/17 0557 01/04/17 0557 Imaging Last 48 hours Impressions Cholangiopancreatography MRI 01/04/17 0000 Signed Impressions: Service Date/Time: December 12:31 - CONCLUSION: Cholelithiasis. K. Rashard Mcgarry MD Abdomen/Pelvis CT 01/03/17 1844 Signed Impressions: Service Date/Time: Tuesday, January 03, 2017 20:45 - CONCLUSION: 1. Mild stranding of fat around the pancreas with some free fluid around the gallbladder and gallbladder wall thickening. Differential diagnosis includes mild pancreatitis and cholecystitis. Calcified gallstone in gallbladder. 2. No bowel obstruction. No free air. 3. Liver cirrhosis. Jerry Ball MD Gall Bladder Ultrasound 01/03/17 0000 Signed Impressions: Service Date/Time: Tuesday, January 03, 2017 21:50 - CONCLUSION: 1. Gallbladder wall thickening with multiple gallstones and positive sonographic Stokes sign. Primary differential diagnosis is cholecystitis. There may also be some adenomyomatosis in the gallbladder wall. Jerry Ball MD Assessment and Plan Assessment and Plan 81-year-old male with gallstone pancreatitis -Clear liquids; NPO after MN -Labs in AM -Hold anticoagulation -IVF -MRCP reviewed -Will do laparoscopic cholecystectomy tomorrow pending labs -Thank you for this consult; We will continue to follow Discussed Condition With Elsa Mcintosh Jan 04, 2017 10:36
[2017-01-04] MEDS: SODIUM CHLORIDE 0.9% FLUSH 10 ML FLUSH IV FLUSH SCH ×2 (10:54→23:21)
[2017-01-04 12:00] VITALS: BP 95/65; PULSE 76; RESP 18; TEMP 96.6; O2SAT 93
--- NOTE | 2017-01-04 13:38 | RADRPT ---
EXAM DATE/TIME: 01/04/2017 12:31 [place] COMPARISON: CT ABDOMEN & PELVIS W CONTRAST, January 03, 2017, 20:45. US ABDOMEN - GALLBLADDER, January 03, 2017, 2 1:50. INDICATIONS : Abdominal pain. Obstruction. MEDICAL HISTORY : None. SURGICAL HISTORY : Cataracts. Leg fracture. ENCOUNTER: Subsequent ACUITY: 2 day PAIN SCORE: 0/10 LOCATION: abdomen. TECHNIQUE: Multiplanar, multisequence magnetic resonance imaging of the abdomen was performed. High-resolution 3D dataset was utilized to reconstruct maximum-intensity projection (MIP) images. FINDINGS: Common bile duct measures 4 mm and there is no evidence for intrahepatic ductal dilatation or fi lling defects. Multiple gallstones are present with slight thickening of the gallbladder wall. A mild case of adenomyomatosis may be present. CONCLUSION: Cholelithiasis. Toney Mcgarry MD on January 04, 2017 at 13:33 Board Certified Radiologist. This report was verified electronically.
[2017-01-04 16:00] VITALS: BP 122/58; PULSE 75; RESP 18; TEMP 98; O2SAT 94
[2017-01-04 18:21] LABS: TRANSFERRIN IRON PROFILE 158 MG/DL (200-360)
[2017-01-04 18:24] LABS: FERRITIN 286 NG/ML (26-388)
[2017-01-04 20:15] VITALS: BP 118/64; PULSE 83; RESP 18; TEMP 99.6; O2SAT 93
[2017-01-05] VITALS (7 sets, daily range): BP systolic 95–112; BP diastolic 41–59; PULSE 63–83; RESP 17–20; TEMP 96–98.6; O2SAT 91–97
[2017-01-05] MEDS: SODIUM CHLOR 0.9% 1000 ML INJ 1,000 ML IV SCH ×5 (02:15→17:55)
[2017-01-05] MEDS: PIPERACIL-TAZO 4.5 GM PREMIX 100 ML IV SCH ×4 (04:00→22:00)
[2017-01-05] MEDS ORDERED: BUPIVACAINE/EPINEPHRINE 0.25% 50 ML VIAL ONE (06:12)
[2017-01-05 07:41] LABS: INDIRECT BILIRUBIN 1.1 MG/DL (0.0-0.8); TOTAL BILIRUBIN ADULT 1.5 MG/DL (0.2-1.0)
[2017-01-05] MEDS ORDERED: FAMOTIDINE 20 MG/2 ML VIAL ONE (08:54)
[2017-01-05] MEDS: SODIUM CHLORIDE 0.9% FLUSH 10 ML FLUSH IV FLUSH SCH ×2 (09:00→21:00)
--- NOTE | 2017-01-05 10:30 | HHI.PR ---
Subjective Remarks seen 3:30 pm- post op patient hungry, no nausea or vomiting + flatus already "farted" Objective Vitals Vital Signs Date Time Temp Pulse Resp B/P (MAP) Pulse Ox O2 Delivery O2 Flow Rate FiO2 01/05/17 08:00 97.7 75 20 110/54 (72) 91 01/05/17 04:15 96.7 81 18 109/59 (76) 93 01/05/17 00:15 98.6 83 18 111/55 (73) 93 01/04/17 20:15 99.6 83 18 118/64 (82) 93 01/04/17 16:00 98.0 75 18 122/58 (79) 94 01/04/17 12:00 96.6 76 18 95/65 (75) 93 I/O 01/04/17 01/04/17 01/04/17 01/05/17 01/05/17 01/05/17 07:00 15:00 23:00 07:00 15:00 23:00 Intake Total 645 ml 480 ml 0 ml Output Total 200 ml Balance 645 ml 480 ml -200 ml Intake Oral 120 ml 480 ml 0 ml IV Total 525 ml Output Urine Total 200 ml # Voids 1 0 2 # Bowel Movements 0 0 0 Result Diagram: 01/04/17 0557 01/04/17 0557 Imaging Last Impressions Cholangiopancreatography MRI 01/04/17 0000 Signed Impressions: Service Date/Time: December 12:31 - CONCLUSION: Cholelithiasis. K. Rashard Mcgarry MD Abdomen/Pelvis CT 01/03/17 1844 Signed Impressions: Service Date/Time: Tuesday, January 03, 2017 20:45 - CONCLUSION: 1. Mild stranding of fat around the pancreas with some free fluid around the gallbladder and gallbladder wall thickening. Differential diagnosis includes mild pancreatitis and cholecystitis. Calcified gallstone in gallbladder. 2. No bowel obstruction. No free air. 3. Liver cirrhosis. Jerry Ball MD Gall Bladder Ultrasound 01/03/17 0000 Signed Impressions: Service Date/Time: Tuesday, January 03, 2017 21:50 - CONCLUSION: 1. Gallbladder wall thickening with multiple gallstones and positive sonographic Stokes sign. Primary differential diagnosis is cholecystitis. There may also be some adenomyomatosis in the gallbladder wall. Jerry Ball MD Objective Remarks awake and alert, anicteric lungs clear regular rhythm abdomen- soft good bowel sounds, sterile strips extremities no edema A/P Assessment and Plan Impression: S/P laparoscopic cholecystectomy for Gallstone Pancreatitis - surgery ff - started diet home tomorrow if cleared and tolerates po well Hadley Gruber MD Jan 05, 2017 10:30
[2017-01-05] MEDS ORDERED: DO NOT ADM ANY ANTICOAGULANT DRUGS PRN (11:00)
--- NOTE | 2017-01-05 11:04 | HHI.PR ---
Immediate Post Op Note Procedure Date: Jan 05, 2017 Pre Op Diagnosis: acute pancreatitis, acute cholecystitis Post Op Diagnosis: same, cirrhosis Surgeon: Maged Mercado Sewing Machinist(s): ayo Procedure: lap jannette Findings: acute cholecytitis, pancreatitis, cirrhosis Specimen(s) removed: gallbladder Estimated blood loss: 100cc Anesthesia: General Drains: None IVF Patient to: PACU Patient Condition: Good Maged Mercado MD Jan 05, 2017 11:04
[2017-01-05] MEDS ORDERED: fentaNYL CITRATE 250 MCG/5 ML AMP ONE (11:14)
[2017-01-05] MEDS ORDERED: PROPOFOL 200 MG/20 ML AMP IV ONE (12:47)
[2017-01-05] MEDS ORDERED: ONDANSETRON HCL 4 MG/2 ML VIAL IV PUSH ONE (12:47)
[2017-01-05] MEDS ORDERED: LACTATED RINGER'S 1000 ML INJ 1,000 ML IV ONE (12:47)
[2017-01-05 17:32] LABS: ANA SCREEN NEG (NEG)
[2017-01-06 00:20] VITALS: BP 130/60; PULSE 67; RESP 17; TEMP 97; O2SAT 98
[2017-01-06] MEDS: SODIUM CHLOR 0.9% 1000 ML INJ 1,000 ML IV SCH ×4 (00:28→10:41)
[2017-01-06] MEDS: PIPERACIL-TAZO 4.5 GM PREMIX 100 ML IV SCH ×2 (03:15→10:40)
[2017-01-06 04:20] VITALS: BP 118/57; PULSE 67; RESP 17; TEMP 97.6; O2SAT 97
[2017-01-06 08:00] VITALS: BP 107/62; PULSE 67; RESP 20; TEMP 96.7; O2SAT 96
[2017-01-06] MEDS: SODIUM CHLORIDE 0.9% FLUSH 10 ML FLUSH IV FLUSH SCH (09:00)
--- NOTE | 2017-01-06 09:54 | HHI.PR ---
Subjective Remarks no complains tolerating current diet "farting a lot" Objective Vitals Vital Signs Date Time Temp Pulse Resp B/P (MAP) Pulse Ox O2 Delivery O2 Flow Rate FiO2 01/06/17 08:00 96.7 67 20 107/62 (77) 96 01/06/17 04:20 97.6 67 17 118/57 (77) 97 01/06/17 01:35 Nasal Cannula 2.00 01/06/17 00:20 97.0 67 17 130/60 (83) 98 01/05/17 20:20 96.3 63 17 112/58 (76) 97 01/05/17 20:08 63 01/05/17 16:00 97.6 69 20 101/54 (70) 96 01/05/17 12:10 96.0 70 20 95/41 (59) 92 01/05/17 11:45 60 16 112/61 (78) 92 Nasal Cannula 2 01/05/17 11:30 61 16 108/54 (72) 91 Nasal Cannula 2 01/05/17 11:15 68 16 124/59 (80) 94 Nasal Cannula 2 01/05/17 11:08 98.2 75 16 129/60 (83) 92 Nasal Cannula 2 I/O 01/05/17 01/05/17 01/05/17 01/06/17 01/06/17 01/06/17 07:00 15:00 23:00 07:00 15:00 23:00 Intake Total 0 ml 1780 ml 300 ml 120 ml Output Total 200 ml 200 ml 350 ml Balance -200 ml 1780 ml 100 ml -230 ml Intake Oral 0 ml 480 ml 300 ml 120 ml Other 1300 ml Output Urine Total 200 ml 200 ml 350 ml # Voids 2 3 # Bowel Movements 0 0 0 0 Result Diagram: 01/04/17 0557 01/04/17 0557 Imaging Last Impressions Cholangiopancreatography MRI 01/04/17 0000 Signed Impressions: Service Date/Time: December 12:31 - CONCLUSION: Cholelithiasis. KOtilia Mcgarry MD Abdomen/Pelvis CT 01/03/17 1844 Signed Impressions: Service Date/Time: Tuesday, January 03, 2017 20:45 - CONCLUSION: 1. Mild stranding of fat around the pancreas with some free fluid around the gallbladder and gallbladder wall thickening. Differential diagnosis includes mild pancreatitis and cholecystitis. Calcified gallstone in gallbladder. 2. No bowel obstruction. No free air. 3. Liver cirrhosis. Jerry Ball MD Gall Bladder Ultrasound 01/03/17 0000 Signed Impressions: Service Date/Time: Tuesday, January 03, 2017 21:50 - CONCLUSION: 1. Gallbladder wall thickening with multiple gallstones and positive sonographic Stokes sign. Primary differential diagnosis is cholecystitis. There may also be some adenomyomatosis in the gallbladder wall. Jerry Ball MD Objective Remarks awake and alert, anicteric lungs clear regular rhythm abdomen- soft good bowel sounds, sterile strips in place, incisions dry, extremities no edema Procedures 01/05- s/p laparoscopic cholecystectomy A/P Assessment and Plan Impression: S/P laparoscopic cholecystectomy for Gallstone Pancreatitis - surgery ff advance to regular up and ambulate DC today if cleared with GS- OP ff up in 1 week- staff nurse to give office # to call diet as tolerated activity ad gab CM- for DC planning needs- Hadley Gruber MD Jan 06, 2017 09:54
--- NOTE | 2017-01-06 11:06 | HHI.PR ---
Subjective Subjective Notes feels fine, tolerating po, pain controlled. Objective Vitals/I&O Vital Signs Date Time Temp Pulse Resp B/P (MAP) Pulse Ox O2 Delivery O2 Flow Rate FiO2 01/06/17 08:00 96.7 67 20 107/62 (77) 96 01/06/17 01:35 Nasal Cannula 2.00 Labs Date/Time Source Procedure Growth Status 01/03/17 18:55 Blood Peripheral Aerobic Blood Culture - Preliminary NO GROWTH IN 2 DAYS Resulted 01/03/17 18:55 Blood Peripheral Anaerobic Blood Culture - Preliminary NO GROWTH IN 2 DAYS Resulted Radiology Last 48 hours Impressions Cholangiopancreatography MRI 01/04/17 0000 Signed Impressions: Service Date/Time: December 12:31 - CONCLUSION: Cholelithiasis. Toney Mcgarry MD Abdomen/Pelvis CT 01/03/17 1844 Signed Impressions: Service Date/Time: Tuesday, January 03, 2017 20:45 - CONCLUSION: 1. Mild stranding of fat around the pancreas with some free fluid around the gallbladder and gallbladder wall thickening. Differential diagnosis includes mild pancreatitis and cholecystitis. Calcified gallstone in gallbladder. 2. No bowel obstruction. No free air. 3. Liver cirrhosis. Jerry Ball MD Gall Bladder Ultrasound 01/03/17 0000 Signed Impressions: Service Date/Time: Tuesday, January 03, 2017 21:50 - CONCLUSION: 1. Gallbladder wall thickening with multiple gallstones and positive sonographic Stokes sign. Primary differential diagnosis is cholecystitis. There may also be some adenomyomatosis in the gallbladder wall. Jerry Ball MD Abdomen: Non-distended, Non-tender, BS normal Wound Wound : Wound Location: Abdomen Appearance: Clean & Dry Dressing: Dry A/P Assessment and Plan s/p lap jannette ok to dc home fu in 1 week in office. will see prn - please call if any question or concerns thanks Maged Mercado MD Jan 06, 2017 11:06
--- NOTE | 2017-01-06 11:30 | HHI.GIFU ---
Subjective Remarks Resting in bed. No n/v. Tolerating diet. Passing flatus. Mild abdominal tenderness. (Bren Hansen) Objective Vitals I&O Vital Signs Date Time Temp Pulse Resp B/P (MAP) Pulse Ox O2 Delivery O2 Flow Rate FiO2 01/06/17 08:00 96.7 67 20 107/62 (77) 96 01/06/17 04:20 97.6 67 17 118/57 (77) 97 01/06/17 01:35 Nasal Cannula 2.00 01/06/17 00:20 97.0 67 17 130/60 (83) 98 01/05/17 20:20 96.3 63 17 112/58 (76) 97 01/05/17 20:08 63 01/05/17 16:00 97.6 69 20 101/54 (70) 96 01/05/17 12:10 96.0 70 20 95/41 (59) 92 01/05/17 11:45 60 16 112/61 (78) 92 Nasal Cannula 2 01/05/17 11:30 61 16 108/54 (72) 91 Nasal Cannula 2 I/O 01/05/17 01/05/17 01/05/17 01/06/17 01/06/17 01/06/17 07:00 15:00 23:00 07:00 15:00 23:00 Intake Total 0 ml 1780 ml 300 ml 120 ml Output Total 200 ml 200 ml 350 ml Balance -200 ml 1780 ml 100 ml -230 ml Intake Oral 0 ml 480 ml 300 ml 120 ml Other 1300 ml Output Urine Total 200 ml 200 ml 350 ml # Voids 2 3 # Bowel Movements 0 0 0 0 Laboratory Date/Time Source Procedure Growth Status 01/03/17 18:55 Blood Peripheral Aerobic Blood Culture - Preliminary NO GROWTH IN 3 DAYS Resulted 01/03/17 18:55 Blood Peripheral Anaerobic Blood Culture - Preliminary NO GROWTH IN 3 DAYS Resulted Imaging Last Impressions Cholangiopancreatography MRI 01/04/17 0000 Signed Impressions: Service Date/Time: December 12:31 - CONCLUSION: Cholelithiasis. Toney Mcgarry MD Abdomen/Pelvis CT 01/03/17 1844 Signed Impressions: Service Date/Time: Tuesday, January 03, 2017 20:45 - CONCLUSION: 1. Mild stranding of fat around the pancreas with some free fluid around the gallbladder and gallbladder wall thickening. Differential diagnosis includes mild pancreatitis and cholecystitis. Calcified gallstone in gallbladder. 2. No bowel obstruction. No free air. 3. Liver cirrhosis. Jerry Ball MD Gall Bladder Ultrasound 01/03/17 0000 Signed Impressions: Service Date/Time: Tuesday, January 03, 2017 21:50 - CONCLUSION: 1. Gallbladder wall thickening with multiple gallstones and positive sonographic Stokes sign. Primary differential diagnosis is cholecystitis. There may also be some adenomyomatosis in the gallbladder wall. Jerry Ball MD Physical Exam HEENT: Normocephalic; atraumatic; no jaundice. CHEST: Expiratory wheezing, diminished bases CARDIAC: RRR ABDOMEN: Soft, nondistended, mild diffuse tenderness; bowel sounds are present in all four quadrants. EXTREMITIES: No clubbing, cyanosis, or edema. SKIN: Normal; no rash; no jaundice. GLUE SPECIALTY SUPERVISOR: No focal deficits; alert and oriented times three. (Bren Hansen [facility]) Assessment and Plan Plan ASSESSMENT: - Gallstone pancreatitis. CT scan abdomen and pelvis with iv contrast (01/03/17)- ----> mild stranding of fat around the pancreas with some free fluid around the gallbladder and gallbladder wall thickening. Differential diagnosis included mild pancreatitis and cholecystitis. Calcified gallstone in gallbladder. No bowel obstruction. No free air. Liver cirrhosis. US (01/03/17)----> gallbladder wall thickening with multiple gallstones and positive sonographic Stokes sign. Primary differential diagnosis is cholecystitis. There also may be some adenomyomatosis and the gallbladder wall. Liver has a slightly lobulated appearance characteristic of liver cirrhosis. MRCP ()----> Cholelithiasis. CBD 4 mm and there is no evidence for intrahepatic ductal dilatation or filling defects. Multiple gallstones with slight thickening of the gallbladder wall. A mild case of adenomyomatosis may be present. LFTs were initially elevated in an obstructive pattern, but are trending down. Clinically the patient is much improved. Suspect that he passed a gallstone, but will obtain. S/P Lap. Sharri (01/05/17 ). T. Bili 1.5, AST 37, ALT 40, Alk Phosph 66. - Cholecystitis, cholelithiasis. S/P Lap Sharri, POD #1. - Liver cirrhosis on imaging (US/CT). No prior diagnosis of this. MELD 6. Denies ETOH use. 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 ? underlying chronic hepatitis. Hepatitis profile (+) for HCV antibodies, will get genotype and viral load. MEKA, AMA, ASMA, Alpha 1 Antitrypsin, Ceruloplasmin pending. AFP 1.5, Ferritin 286. - Wheezing with significant tobacco history, suspect underlying COPD, per attending. PLAN: - COLBY - HCV Genotype and viral load - Await liver workup (pt with evidence of cirrhosis on imaging, new per patient) - If patient discharged, he will need outpatient follow up for liver disease - Further recommendations to follow based on results of above - Pt seen and examined by Dr. Alberts and myself and this note is written on his behalf (Bren Hansen) Physician Comments S/ P Cholecystectomy and recent work showed evidence of cirrhosis , work up pending, likely HCV related. PCR and genotype pending, can be followed as out patient. Will follow up with you as needed. (Brian Alberts MD) Bren Hansen Jan 06, 2017 11:29 Brian Alberts MD Jan 06, 2017 14:40
[2017-01-06 12:00] VITALS: BP 120/58; PULSE 71; RESP 16; TEMP 95.6; O2SAT 95
--- NOTE | 2017-01-08 09:25 | MP ---
cc: ADAMA ALCANTARA M.D. DATE OF SURGERY 01/05/2017 PREOPERATIVE DIAGNOSES 1. Acute cholecystitis 2. Gallstone pancreatitis. POSTOPERATIVE DIAGNOSES 1. Acute cholecystitis 2. Gallstone pancreatitis. 3. Cirrhosis, see photos. PROCEDURE PERFORMED Laparoscopic cholecystectomy. SURGEON Adama Alcantara MD ANESTHESIA General endotracheal. COMPLICATIONS None. INDICATION FOR PROCEDURE Mr. Lewis is very pleasant 81-year-old gentleman who presented to the hospital with nausea, vomiting, abdominal pain. He was worked up and found have pancreatitis as well as cholecystitis by imaging and lab work. He was managed conservatively until his pancreatitis resolved. Once his pancreatitis resolved, he was deemed a candidate for cholecystectomy. The risks and benefits of open and laparoscopic cholecystectomy was discussed with him and he was agreeable. DETAILS The patient was identified, brought to the operating room and placed supine on the operating room table. After adequate general endotracheal anesthesia was achieved, the abdomen was prepped and draped in standard surgical fashion. The infraumbilical space was anesthetized with 0.25% Marcaine. Infraumbilical incision was made. Dissection was carried down through the subcutaneous tissue into the midline fascia. The midline fascia was then incised sharply. A finger was placed in the peritoneal cavity without difficulty. Blunt balloon trocar was inserted and the abdomen was insufflated to 15 mmHg using CO2 gas. Next, two 5-mm trocars were placed in the right upper quadrant after anesthetizing the skin and subcutaneous tissue with 0.25% Marcaine. Attention was directed to the gallbladder which was noted to be very edematous with some fat saponification around it from the pancreatitis. The gallbladder was retracted cephalad. There were very dense omental adhesions which were taken down with blunt and electrocautery dissection. Once the gallbladder was clearly seen, attention was directed to the gallbladder neck. At the gallbladder neck the cystic duct was carefully dissected out and confirmed in two planes. Once it was seen in two planes entering the neck of the gallbladder, it was clipped three times proximally and once distally and then divided. Next, the cystic artery was confirmed in two planes. Once it was confirmed in two planes it was clipped twice proximally, once distally and then divided. Once we divided it out, there was some lymphatic tissue that was bleeding just superior and lateral to where we clipped the cystic artery. A single clip was placed on this and the bleeding stopped. Next, the gallbladder was dissected out of the hepatic fossa using electrocautery Bovie. Several bleeding points and the liver bed were controlled with electrocautery Bovie. The gallbladder was then placed in Endopouch bag and brought up to the infraumbilical port and inspected. The gallbladder was noted to be markedly thickened and scarred with multiple gallstones. Clips were placed in on the cystic duct stump with no evidence of leakage of bile. Next, the gallbladder was sent to pathology. The abdominal cavity was revisualized. The liver bed was carefully inspected and found to be hemostatic. The clips were carefully inspected and there was no evidence of leakage of bile and no evidence of bleeding. The abdominal cavity was rinsed out with warm saline solution until the effluent was noted to be clear. Once it was clear we elected to go ahead and place Yakov hemostatic agent due to the fact that the patient did have marked cirrhosis and the liver bed was raw in a couple of areas but not bleeding. 1 gram of Yakov was placed along the hepatic fossa. Next, all ports were removed under direct vision. The midline fascia was repaired using a 0 Vicryl in [id number] fashion. The skin was closed with 4-0 Vicryl. The patient tolerated the procedure well, was awakened and brought to Recovery in stable condition. MD JONO Bergeron/ESHA /10:59 AM /9:10 AM
[2017-01-09 13:54] LABS: MITOCHONDRIAL ABS LESS THAN 20.0 U (<=20.0)
--- NOTE | 2017-01-30 15:27 | HHI.DS ---
Discharge Summary Admission Date Jan 03, 2017 at 21:46 Discharge Date: Jan 06, 2017 Admitting Diagnosis acute pancreatitis (1) Gallstone pancreatitis ICD Code: K85.10 - Biliary acute pancreatitis without necrosis or infection Diagnosis: Principal (2) S/P laparoscopic cholecystectomy ICD Code: Z90.49 - Acquired absence of other specified parts of digestive tract Diagnosis: Principal Procedures 01/05- s/p laparoscopic cholecystectomy Brief History - From Admission History from patient, ER physician notes, and review of medical records. Patient reported that he thought he was having bed and rolls when he started having severe abdominal pains, pointed to midepigastrium, last night. He reports that he was quite nauseous and vomited a few times about 3 times. He was able to go to his friend's place though and at his friend's place, he was again feeling sick and felt warm and feverish. He also fell asleep because of being too weak. His friend there for than encouraged him to come to hospital and called 911. He denies any black color vomits or red color vomit. Denies any blood in his urine. Apart from the above, patient denies any other constitutional symptoms. Denies any chest pain/palpitations/shortness of breath/focal weakness. Denies any hematemesis/hematochezia/melena/hematuria. Imaging Last Impressions Cholangiopancreatography MRI 01/04/17 0000 Signed Impressions: Service Date/Time: December 12:31 - CONCLUSION: Cholelithiasis. K. Rashard Mcgarry MD Abdomen/Pelvis CT 01/03/17 1844 Signed Impressions: Service Date/Time: Tuesday, January 03, 2017 20:45 - CONCLUSION: 1. Mild stranding of fat around the pancreas with some free fluid around the gallbladder and gallbladder wall thickening. Differential diagnosis includes mild pancreatitis and cholecystitis. Calcified gallstone in gallbladder. 2. No bowel obstruction. No free air. 3. Liver cirrhosis. Jerry Ball MD Gall Bladder Ultrasound 01/03/17 0000 Signed Impressions: Service Date/Time: Tuesday, January 03, 2017 21:50 - CONCLUSION: 1. Gallbladder wall thickening with multiple gallstones and positive sonographic Stokes sign. Primary differential diagnosis is cholecystitis. There may also be some adenomyomatosis in the gallbladder wall. Jerry Ball MD PE at Discharge awake and alert, anicteric lungs clear regular rhythm abdomen- soft good bowel sounds, sterile strips in place, incisions dry, extremities no edema Pt update on day of discharge no complains tolerating current diet "farting a lot" Hospital Course 81 years old male S/P laparoscopic cholecystectomy for Gallstone Pancreatitis - surgery ff advance to regular up and ambulate DC today if cleared with GS- OP ff up in 1 week- staff nurse to give office # to call diet as tolerated activity ad gab Pt Condition on Discharge: Stable Discharge Disposition: Discharge Home Discharge Time: <= 30 minutes Discharge Instructions DIET: Follow Instructions for: As Tolerated, No Restrictions Speech Therapy-Diet Recommends: Regular Activities you can perform: Weight Bearing as Pedro Follow up Referrals: Gastroenterology - 2 Weeks @ [facility] - 3-5 Days with Maged Mercado MD please ian notes of dr mercado- give office number to call for appt- in 5 days post op ff up Medication Profile: No Active Prescriptions or Reported Meds Hadley Gruber MD Jan 30, 2017 15:27
== END 2017-01-06 15:17 | disposition home or self-care (01) | DRG 419 ==
LOC: NEPE 17:25 → NEDA 21:46 → N06B 23:48
PROVIDERS: ADMIT Internal Medicine; ATTEND Internal Medicine
PROC: 0FT44ZZ Resection of Gallbladder, Percutaneous Endoscopic Approach (ICD-10-PCS; principal; 2017-01-05 09:39)
DX: K85.10 Biliary acute pancreatitis without necrosis or infection (principal); E87.5 Hyperkalemia; K74.60 Unspecified cirrhosis of liver; F17.290 Nicotine dependence, other tobacco product, uncomplicated; M19.90 Unspecified osteoarthritis, unspecified site; J44.9 Chronic obstructive pulmonary disease, unspecified
CPT/HCPCS: 74177; 74181; 76377; 76705; 80053; 80074; 80076; 81001; 82103; 82105; 82390; 82728; 83520; 83540; 83550; 83605; 83690; 85025; 85610; 85730; 86038; 86255; 87040; 88304; 93005; 94664; 96374; 96375; J2270; J2405; J2543; J3010; J7030; J7120; Q9967

== ENCOUNTER 2017-03-25 14:04 | Emergency (ER) | payer MEDICARE, MEDICAID ==
[~2017-03-25] VITALS: Ht 180.3 cm; Wt 80.0 kg
[2017-03-25 14:06] VITALS: BP 139/62; PULSE 102; RESP 16; TEMP 98.3; O2SAT 97
[2017-03-25 16:25] VITALS: BP 130/60; PULSE 89; RESP 18; O2SAT 98
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
[2017-03-25] MEDS ORDERED: ACETAMINOPHEN/HYDROcodone 325 MG/5 MG TAB PO ONE (17:30)
--- NOTE | 2017-03-25 18:08 | RADRPT ---
EXAM DATE/TIME: 03/25/2017 17:35 [facility] COMPARISON: No previous studies available for comparison. INDICATIONS : Right hand swelling, pain. MEDICAL HISTORY : None. SURGICAL HISTORY : None. ENCOUNTER: Initial ACUITY: 1 day PAIN SCORE: 0/10 LOCATION: Right hand FINDINGS: 3 views of the right hand demonstrate demineralization of the bones. No fracture or dislocation is id entified. There are cystic areas within the lunate and triquetral bones. Mineralization is present wi thin the region of the triangular fibrocartilage complex. There is diffuse soft tissue swelling. No r adiopaque foreign body is identified. CONCLUSION: 1. Diffuse soft tissue swelling without an acute abnormality identified. 2. Bones are undermineralized. Jerome Moraes MD on March 25, 2017 at 18:05 Board Certified Radiologist. This report was verified electronically.
--- NOTE | 2017-03-25 18:10 | RADRPT ---
EXAM DATE/TIME: 03/25/2017 17:37 [facility] COMPARISON: No previous studies available for comparison. INDICATIONS : Pain in left wrist, fall. MEDICAL HISTORY : None. SURGICAL HISTORY : None. ENCOUNTER: Initial ACUITY: 1 day PAIN SCORE: 0/10 LOCATION: Left wrist FINDINGS: 3 views of the left wrist demonstrate diffusely in demineralized bones. No fracture is identified. Th ere is an 8mm cystic lesion within the lunate. Mineralization is present in the triangular fibrocarti edwina complex. No soft tissue abnormality or radiopaque foreign body is identified. CONCLUSION: No acute left wrist abnormality is identified. The bones are undermineralized and there is a cystic l esion within the lunate, likely degenerative. Jerome Moraes MD on March 25, 2017 at 18:07 Board Certified Radiologist. This report was verified electronically.
--- NOTE | 2017-03-25 18:14 | RADRPT ---
EXAM DATE/TIME: 03/25/2017 17:37 [facility] COMPARISON: No previous studies available for comparison. INDICATIONS : Fall, swollen right wrist. MEDICAL HISTORY : None. SURGICAL HISTORY : None. ENCOUNTER: Initial ACUITY: 1 day PAIN SCORE: 0/10 LOCATION: Right wrist FINDINGS: Three view examination of the right wrist demonstrates some regional osseous demineralization. No fra cture. Degenerative osteoarthritic changes are seen at the first MCP joint there is some stippled gigi cification of what I believe is the triangular fibrocartilage. Mild, regional soft tissue swelling. CONCLUSION: 1. Chronic changes with some degenerative osteoarthritis. 2. Some calcification of the triangular fibrocartilage. 3. No fracture. Wily Novak MD on March 25, 2017 at 18:10 Board Certified Radiologist. This report was verified electronically.
--- NOTE | 2017-03-25 18:17 | RADRPT ---
EXAM DATE/TIME: 03/25/2017 17:39 [facility] COMPARISON: No previous studies available for comparison. INDICATIONS : Right elbow pain from fall. MEDICAL HISTORY : None. SURGICAL HISTORY : None. ENCOUNTER: Initial ACUITY: 1 day PAIN SCORE: 0/10 LOCATION: Right elbow FINDINGS: Four views of the right elbow demonstrate no fracture or dislocation. No joint effusion is visualized . No radiopaque foreign body is identified. There is mild posterior soft tissue swelling. CONCLUSION: Mild posterior soft tissue swelling. No fracture is visualized. Jerome Moraes MD on March 25, 2017 at 18:14 Board Certified Radiologist. This report was verified electronically.
--- NOTE | 2017-03-25 18:24 | RADRPT ---
EXAM DATE/TIME: 03/25/2017 17:41 [facility] COMPARISON: No previous studies available for comparison. INDICATIONS : Pain in left hand. MEDICAL HISTORY : None. SURGICAL HISTORY : None. ENCOUNTER: Initial ACUITY: 1 day PAIN SCORE: 0/10 LOCATION: Left hand FINDINGS: 3 views of the left hand demonstrate diffuse undermineralization of the bones. No fracture or disloca tion is identified. There is degenerative change at the first and fifth digit metacarpophalangeal mihir nt. 8mm cystic lesion is present within the lunate. No soft tissue abnormality or radiopaque foreign body is identified. CONCLUSION: Undermineralized bones with degenerative changes, as above. No acute finding is identified. Jerome Moraes MD on March 25, 2017 at 18:21 Board Certified Radiologist. This report was verified electronically.
[2017-03-25] MEDS ORDERED: HYDR-3516 PO (18:41)
== END 2017-03-25 19:14 | disposition home or self-care (01) ==
LOC: NEPD 14:04
DX: S69.91XA Unspecified injury of right wrist, hand and finger(s), initial encounter (principal); M25.532 Pain in left wrist; M79.642 Pain in left hand; M25.521 Pain in right elbow; W10.1XXA Fall (on)(from) sidewalk curb, initial encounter; Y92.480 Sidewalk as the place of occurrence of the external cause
CPT/HCPCS: 73080; 73110; 73130; 99284